=== PATIENT | male | born 1970 | race Hispanic/Latino ===

== ENCOUNTER 2020-10-05 11:15 | Emergency (ER) | payer SELFPAY ==
[2020-10-05] MEDS ORDERED: Acetaminophen 500 MG TAB ONE (11:50)
[2020-10-05 12:16] LABS: #Lymphocytes 0.8 thou/uL (1.20-3.40); #Monocytes 0.5 thou/uL (0.11-0.59); #Neutrophils 6.9 thou/uL (1.40-6.50); %Basophils 0.2 % (0.0-1.0); %Eosinophils 0.1 % (0.0-10.0); %Monocytes 5.7 % (0.0-10.0); Hemoglobin 15.7 g/dL (14.0-18.0); Mean Corpuscular HGB CONC 34.4 g/dL (32.0-36.0); Mean Corpuscular Hemoglobin 30.9 pg (27.0-31.0); Mean Platelet Volume 9.2 fL (7.4-10.4); Platelet Count 133 thou/uL (130-400); RBC Distribution Width 11.2 % (11.5-14.5); Red Blood Cell (RBC) Count 5.07 mill/uL (4.70-6.10); White Blood Cell (WBC) Count 8.3 thou/uL (4.8-10.8)
[2020-10-05 12:39] LABS: ALT (SGPT) 102 U/L (8-55); AST (SGOT) 54 U/L (5-34); Albumin 3.5 g/dL (3.5-5.0); Alkaline Phosphatase 60 U/L (40-110); Anion Gap 16 mmol/L (10-20); BUN (Urea Nitrogen) 11 mg/dL (8.9-20.6); Bilirubin, Total 0.7 mg/dL (0.2-1.2); CK (CPK) 28 U/L (30-200); Calc. Creatinine Clearance 0 mL/min (70-130); Calcium 8.1 mg/dL (7.8-10.44); Carbon Dioxide 21 mmol/L (22-29); Chloride 99 mmol/L (98-107); Globulin 3.7 g/dL (2.4-3.5); Glucose 296 mg/dL (70-105); Potassium 3.7 mmol/L (3.5-5.1); Protein, Total 7.2 g/dL (6.0-8.3); Sodium 132 mmol/L (136-145)
--- NOTE | 2020-10-05 12:50 | RAD ---
XR Chest 1 View Portable History: Shortness of breath Comparison: None. Findings: Extensive perihilar and peripheral airspace opacities. No pneumothorax. No effusion. No acu te osseous abnormality. Impression: No acute intrathoracic abnormality.
[2020-10-05 13:01] LABS: Bacteria/HPF None Seen HPF (None Seen); Bilirubin Negative (Negative); Blood, Urine Negative (Negative); Clarity Clear (Clear); Glucose, Urine (Dipstick) Greater than 1000 mg/dL (Negative); Ketone, Urine Trace mg/dL (Negative); Leukocyte Negative Leu/uL (Negative); Nitrite Negative (Negative); Protein, Urine (Dipstick) 30 mg/dL (Neg-Trace); RBC/HPF 0-3 HPF (0-3); Specific Gravity, Urine 1.042 (1.002-1.036); Squamous Epithelial 0-3 HPF (0-3); Urobilinogen Normal mg/dL (Less than 2); WBC/HPF 0-3 HPF (0-3); pH, Urine 6.5 (5.0-9.0)
[2020-10-05] MEDS ORDERED: Iopamidol-370 76% 500 ML 1 ML ONE (13:21)
--- NOTE | 2020-10-05 15:07 | CT ---
CT OF THE CHEST WITH CONTRAST: 10/05/20 HISTORY: COVID pneumonia with worsening shortness of breath and cough. TECHNIQUE: Multiple contiguous axial images were obtained in a CT of the chest with contrast per pulmonary embol ism protocol. 3D oblique MIP reformats and direct coronal reformats were performed. FINDINGS: The pulmonary arteries are well opacified without filling defects to suggest pulmonary emboli. The he art is normal in size without focal cardiac abnormality. No hilar or mediastinal lymphadenopathy are seen. There are multifocal peripheral areas of air space opacity consistent with COVID pneumonia. No pneumo thorax or pleural effusions are seen. Mild degenerative changes are seen in the spine. there is fatty infiltration of the liver. The other visualized subdiaphragmatic structures are unremarkable. The chest wall soft tissues are unremarkable . IMPRESSION: 1. No evidence of pulmonary thromboembolism. 2. COVID pneumonia. POS: [facility]
[2020-10-05] MEDS ORDERED: Albuterol 200 PUFF (6.7GM INHALER) ONE (16:35)
== END 2020-10-05 16:34 | disposition home or self-care (01) ==
LOC: ERS 11:15
DX: U07.1 COVID-19 (principal); J12.89 Other viral pneumonia; E11.9 Type 2 diabetes mellitus without complications; Z87.891 Personal history of nicotine dependence
CPT/HCPCS: 36415; 71045; 71275; 80053; 81003; 81015; 82550; 83605; 83880; 84484; 85025; 85379; Q9967